=== PATIENT | female | born 1935 | race American Indian/Alaskan Native ===

== ENCOUNTER 2021-01-28 17:44 | Emergency (ER) | payer MEDICARE ==
[2021-01-28] MEDS ORDERED: predniSONE 20 MG TAB PO ONE (22:03)
[2021-01-28] MEDS ORDERED: diphenhydrAMINE 25 MG/10 ML ORAL LIQUID PO ONE (22:03)
[2021-01-28] MEDS ORDERED: cloNIDine 0.1 MG TAB PO ONE (22:56)
--- NOTE | 2021-01-29 00:54 | Emergency Department Report ---
ED General Adult HPI - General Chief complaint: Allergic Reaction Stated complaint: HIGH BLOOD PRESSURE Time Seen by Provider: 01/28/21 21:56 Source: patient Mode of arrival: Ambulatory Limitations: No Limitations - History of Present Illness Severity scale (0 -10): 3 - Related Data Previous Rx's Medication Instructions Recorded Last Taken Type hydrOXYzine HCL [Atarax] 25 mg PO Q6HR PRN #14 tablet 01/29/21 Unknown Rx predniSONE 10 mg PO QDAY #5 tab 01/29/21 Unknown Rx Allergies Allergy/AdvReac Type Severity Reaction Status Date / Time shellfish derived Allergy Swelling Verified 01/28/21 17:54 ED Review of Systems ROS: Stated complaint: HIGH BLOOD PRESSURE Other details as noted in HPI Comment: All other systems reviewed and negative ED Past Medical Hx - Past Medical History Hx Hypertension: Yes - Surgical History Additional Surgical History: HIP/HYSTO - Social History Smoking Status: Never Smoker Substance Use Type: None - Medications Home Medications: Home Medications Medication Instructions Recorded Confirmed Last Taken Type hydrOXYzine HCL [Atarax] 25 mg PO Q6HR PRN #14 tablet 01/29/21 Unknown Rx predniSONE 10 mg PO QDAY #5 tab 01/29/21 Unknown Rx ED Physical Exam - General Limitations: No Limitations General appearance: alert, in no apparent distress - Head Head exam: Present: atraumatic, normocephalic - Eye Eye exam: Present: normal appearance, PERRL, EOMI Pupils: Present: normal accommodation - ENT ENT exam: Present: normal exam, mucous membranes moist, other (Mild swelling to the lip normal posterior pharynx airway patent tongue uvula midline voice is normal no evidence of any edema no lymphadenopathy) - Neck Neck exam: Present: normal inspection, full ROM - Respiratory Respiratory exam: Present: normal lung sounds bilaterally. Absent: respiratory distress, wheezes, rales, rhonchi, accessory muscle use, decreased breath sounds - Cardiovascular Cardiovascular Exam: Present: regular rate, normal rhythm. Absent: systolic murmur, diastolic murmur, rubs, gallop - GI/Abdominal GI/Abdominal exam: Present: soft, normal bowel sounds. Absent: tenderness, guarding - Extremities Exam Extremities exam: Present: normal inspection - Back Exam Back exam: Present: normal inspection - Neurological Exam Neurological exam: Present: alert, oriented X3 - Psychiatric Psychiatric exam: Present: normal affect, normal mood - Skin Skin exam: Present: warm, dry, intact, normal color. Absent: rash ED Course Vital Signs 01/28/21 01/28/21 01/28/21 17:53 22:59 23:00 Temperature 98.6 F Pulse Rate 78 68 Respiratory 20 17 Rate Blood Pressure 202/75 200/74 O2 Sat by Pulse 99 98 Oximetry ED Medical Decision Making - Medical Decision Making This patient presents with symptoms consistent with acute hypersensitivity reaction, likely acute allergic reaction secondary to the furosemide she was started on couple days ago. Presentation not consistent with acute anaphylaxis (lack of pulmonary, dermatologic, cardiovascular or GI symptoms, lack of hypotension or exposure to known allergen), angioedema, serum sickness(no recent drug exposure, lack of fevers, arthralgias), ingestion of preformed toxin. No evidence of airway compromise or shock at this time. Plan to treat for allergic reaction with H2/H1 blockers, steroids. No indication for epinephrine at this time. Plan Presents to the emergency department complaining of high blood pressure. Patient is otherwise asymptomatic without confusion, chest pain, hematuria, or SOB. BP today is ___ Patient is not currently on medication Doubt CV, AMI, heart failure, renal infarction or failure or other end organ damage. Disposition:Discussed with patient their elevated blood pressure and need for close outpatient management of their hypertension. Will provide a prescription for the patients previous antihypertensive medication and arrange for the patient to follow up in a primary care clinic Disposition: Discussed with patient their elevated blood pressure and need for close outpatient management of their hypertension. Will provide a prescription for amlodipine 5mg PO daily and arrange for the patient to follow up in a primary care clinic Critical care attestation.: If time is entered above; I have spent that time in minutes in the direct care of this critically ill patient, excluding procedure time. ED Disposition Clinical Impression: Allergic reaction, HTN (hypertension) Disposition: DC-01 TO HOME OR SELFCARE Is pt being admited?: No Does the pt Need Aspirin: No Condition: Stable Instructions: Hypertension, Adult, [id number], Allergies, Adult, Hypertension (ED), Neuropathic Pain Prescriptions: hydrOXYzine HCL [Atarax] 25 mg PO Q6HR PRN #14 tablet PRN Reason: Itching predniSONE 10 mg PO QDAY #5 tab
[2021-01-29 01:18] VITALS: BP 139/61
== END 2021-01-29 01:41 | disposition home or self-care (01) ==
LOC: ED 17:44
DX: T78.40XA Allergy, unspecified, initial encounter (principal); I10 Essential (primary) hypertension; Z91.013 Allergy to seafood; Z98.890 Other specified postprocedural states; X58.XXXA Exposure to other specified factors, initial encounter
CPT/HCPCS: 99282; J7512; Q0163

== ENCOUNTER 2021-06-03 14:31 | Observation (INO) | payer MEDICARE ==
[~2021-06-03 14:31] MED LIST: REGADENOSON 0.4 MG/5 ML INJ IV ONE
[2021-06-03] MEDS ORDERED: traMADol 50 MG TAB PO ONE (16:39)
[2021-06-03] MEDS ORDERED: IBUPROFEN 800 MG TAB PO ONE (16:39)
--- NOTE | 2021-06-03 16:45 | Emergency Department Report ---
HPI - General Chief Complaint: Extremity Injury, Lower Time Seen by Provider: 06/03/21 16:16 - HPI HPI: MSE 5 The patient is an 85-year-old female present with a chief complaint of left hip pain. The patient states for the past 2 to 3 days she has had pain in her left hip that becomes unbearable whenever she attempts to weight-bear. Patient states the same thing happened to her right hip approximately 8 years ago prior to her receiving a right hip replacement. Patient denies any recent trauma. Patient denies history of fever. Patient came to the hospital today to have a chemical stress test performed was in turn sent to the ED because of her left hip pain. The patient has a motorized chair ([employer]) and walker which she uses at home. At rest the patient states there is no pain just soreness in the left hip. Patient states over the same period time she has noticed swelling in both of her legs. Patient denies shortness of breath. ED Past Medical Hx - Past Medical History Hx Hypertension: Yes - Surgical History Additional Surgical History: Right hip replacement (approximately 2012). Hysterectomy - Family History Family history: no significant - Social History Smoking Status: Former Smoker (None since 1983) Substance Use Type: None - Medications Home Medications: Home Medications Medication Instructions Recorded Confirmed Last Taken Type hydrOXYzine HCL [Atarax] 25 mg PO Q6HR PRN #14 tablet 01/29/21 Unknown Rx predniSONE 10 mg PO QDAY #5 tab 01/29/21 Unknown Rx ED Review of Systems ROS: Stated complaint: SWELLING BOTH LEGS Other details as noted in HPI Constitutional: denies: fever Eyes: denies: eye pain ENT: denies: throat pain Respiratory: denies: shortness of breath Cardiovascular: denies: chest pain Endocrine: no symptoms reported Gastrointestinal: denies: abdominal pain Genitourinary: denies: dysuria Musculoskeletal: arthralgia Neurological: denies: headache Physical Exam - Physical Exam Vital Signs: Vital Signs 06/03/21 14:49 Temperature 98.6 F Pulse Rate 72 Respiratory 16 Rate Blood Pressure 127/43 [Left] O2 Sat by Pulse 98 Oximetry Physical Exam: GENERAL: The patient is well-developed well-nourished female sitting on motori zed chair not appearing to be in acute distress HEENT: Normocephalic. Atraumatic. Extraocular motions are intact. Patient has moist mucous membranes. NECK: Supple. Trachea midline CHEST/LUNGS: Clear to auscultation. There is no respiratory distress noted. HEART/CARDIOVASCULAR: Regular. There is no tachycardia. There is no gallop rub or murmur. ABDOMEN: Abdomen is soft, nontender. Patient has normal bowel sounds. There is no abdominal distention. SKIN: There is no rash. There is trace to 1+ bilateral lower extremity pitting edema. There is no diaphoresis. NEURO: The patient is awake, alert, and oriented. The patient is cooperative. The patient has no focal neurologic deficits. The patient has normal speech MUSCULOSKELETAL: The patient points to her left inguinal canal/hip region when asked where she feels pain. There is no evidence of acute injury. ED Course Vital Signs 06/03/21 14:49 Temperature 98.6 F Pulse Rate 72 Respiratory 16 Rate Blood Pressure 127/43 [Left] O2 Sat by Pulse 98 Oximetry - Consultations Consultation #1: 06/03/21 19:31 Cardiology paged 06/03/21 19:[address] Rigoberto Og-swelling is new onset with elevated proBNP may admit the patient to the hospital overnight for diuresis ED Medical Decision Making - Lab Data Result diagrams: 06/03/21 17:20 06/03/21 17:20 Laboratory Tests 06/03/21 06/03/21 17:20 17:20 WBC 9.9 RBC 4.12 Hgb 11.0 Hct 34.0 MCV 82 MCH 27 L MCHC 32 RDW 14.9 Plt Count 233 Lymph % (Auto) 20.4 [place] % (Auto) 8.3 H Eos % (Auto) 2.4 Baso % (Auto) 0.8 Lymph # (Auto) 2.0 [place] # (Auto) 0.8 Eos # (Auto) 0.2 Baso # (Auto) 0.1 Seg Neutrophils % 68.1 Seg Neutrophils # 6.7 Sodium 140 Potassium 3.2 L Chloride 101.6 Carbon Dioxide 25 Anion Gap 17 BUN 18 H Creatinine 1.3 H Estimated GFR 47 BUN/Creatinine Ratio 14 Glucose 100 Calcium 9.0 Total Bilirubin 0.60 AST 14 ALT 8 Alkaline Phosphatase 89 NT-Pro-B Natriuret Pep 1560 H Total Protein 7.7 Albumin 4.0 Albumin/Globulin Ratio 1.1 - Radiology Data Radiology results: report reviewed (Left hip x-ray), image reviewed (Left hip x- ray) interpreted by me: Left hip x-ray-no acute fracture. No dislocation [facility] [address] [place] [address] XRay Report Signed Patient: SARIKA VALENZUELA MR#: [id number] 6 : 1935 Acct:[id number] Age/Sex: 85 / F ADM Date: 06/03/21 Loc: ED Attending Dr: Ordering Physician: GUSTAVO COLLINS MD Date of Service: 06/03/21 Procedure(s): XR hip 2-3V LT Accession Number(s): [id number] cc: GUSTAVO COLLINS MD Fluoro Time In Minutes: XR hip 2-3V LT INDICATION / CLINICAL INFORMATION: Pain with weightbearing. COMPARISON: None available. FINDINGS: Right hip arthroplasty. Associated heterotopic ossification. No acute fracture. Normal alignment. Joint spaces are preserved. No destructive osseous lesion or suspicious periosteal reaction. Impression: 1.No acute fracture. Signer Name: Martin Harris MD Signed: 06/03/2021 5:11 PM Workstation Name: [id number] Transcribed By: CS Dictated By: Martin Harris MD Electronically Authenticated By: Martin Harris MD Signed Date/Time: 06/03/211710 DD/ 09 TD/TT: Print Cancel - Differential Diagnosis Arthralgia, occult fracture, DVTs, peripheral edema, CHF Critical care attestation.: If time is entered above; I have spent that time in minutes in the direct care of this critically ill patient, excluding procedure time. ED Disposition Clinical Impression: Left hip pain, Peripheral edema, Elevated brain natriuretic peptide (BNP) level Disposition: ADMITTED INPATIENT Is pt being admited?: Yes Does the pt Need Aspirin: No Condition: Fair Referrals: PRIMARY CARE, [Primary Care Provider] - 3-5 Days Time of Disposition: 21:21 (Hospitalist called (Dr Pretty))
--- NOTE | 2021-06-03 17:15 | XRay Report ---
XR hip 2-3V LT INDICATION / CLINICAL INFORMATION: Pain with weightbearing. COMPARISON: None available. FINDINGS: Right hip arthroplasty. Associated heterotopic ossification. No acute fracture. Normal alignment. J oint spaces are preserved. No destructive osseous lesion or suspicious periosteal reaction. Impression: 1.No acute fracture. Signer Name: Martin Harris MD Signed: 06/03/2021 5:11 PM Workstation Name: [id number]
[2021-06-03 17:58] LABS: Basophils # (Auto) 0.1 K/mm3 (0.0-0.1); Basophils % (Auto) 0.8 % (0.0-1.8); Eosinophils # (Auto) 0.2 K/mm3 (0.0-0.4); Eosinophils % (Auto) 2.4 % (0.0-4.3); Lymphocytes % (Auto) 20.4 % (13.4-35.0); Mean Corpuscular HGB Conc 32 % (30-34); Mean Corpuscular Volume 82 fl (79-97); Monocytes # (Auto) 0.8 K/mm3 (0.0-0.8); Monocytes % (Auto) 8.3 % (0.0-7.3); Platelet Count 233 K/mm3 (140-440); Red Blood Count 4.12 M/mm3 (3.65-5.03); Red Cell Distribution Width 14.9 % (13.2-15.2)
[2021-06-03] MEDS ORDERED: MORPHINE 4 MG/1 ML INJ IV PRN (22:54)
[2021-06-03] MEDS ORDERED: MORPHINE 2 MG/1 ML INJ IV PRN (22:54)
[2021-06-03] MEDS ORDERED: ONDANSETRON 4 MG/2 ML INJ IV PRN (22:54)
[2021-06-03] MEDS ORDERED: MAGNESIUM HYDROXIDE (MOM) ORAL LIQD UDC PO PRN (22:54)
[2021-06-03] MEDS ORDERED: ACETAMINOPHEN 325 MG TAB PO PRN (22:54)
--- NOTE | 2021-06-03 23:13 | History and Physical Report ---
History of Present Illness Date of examination: 06/03/21 Date of admission: 06/03/21 21:38 Chief complaint: Left Hip Pain History of present illness: 85-year-old -[place] female who presents to the emergency room today complaining of left hip pain which has been ongoing for the past 2 to 3 days. Pain is worse upon weightbearing. She had known history of right hip replacement about 8 years ago. She denies any fall or trauma to the left hip. She was in the hospital today for a chemical stress test after which she complained of left hip pain and was subsequently sent to the emergency room by her industrial engineer for further evaluation. Patient uses a motorized wheelchair for ambulation at home. She has also noticed progressive swelling of her lower extremities over the past few days. She denies any chest pain or shortness of breath. No nausea vomiting and no abdominal pain. Work-up in the emergency room today, chest x-ray reveals right infrahilar density which could be due to vascularity but this is asymmetric. Labs reveals a BNP of 1560. Patient is being admitted with left hip pain and possibly new onset CHF. Past History Past Medical History: hypertension Past Surgical History: hysterectomy, Other (Right hip replacement.) Social history: smoking (Former smoker) Family history: no significant family history Medications and Allergies Allergies Allergy/AdvReac Type Severity Reaction Status Date / Time greco Allergy Unknown Verified 06/03/21 14:54 shellfish derived Allergy Swelling Verified 06/03/21 14:54 Home Medications Medication Instructions Recorded Confirmed Last Taken Type hydrOXYzine HCL [Atarax] 25 mg PO Q6HR PRN #14 tablet 01/29/21 Unknown Rx predniSONE 10 mg PO QDAY #5 tab 01/29/21 Unknown Rx Active Meds: Active Medications Acetaminophen (Acetaminophen 325 Mg Tab) 650 mg PO Q4H PRN PRN Reason: Pain MILD(1-3)/Fever >100.5/[place] Furosemide (Furosemide 40 Mg/4 Ml Inj) 40 mg IV BID@0600,1800 MARZENA Heparin Sodium (Porcine) (Heparin 5,000 Unit/1 Ml Vial) 5,000 unit SUB-Q Q8HR MARZENA Magnesium Hydroxide (Magnesium Hydroxide (Mom) Oral Liqd Udc) 30 ml PO Q4H PRN PRN Reason: Constipation Morphine Sulfate (Morphine 2 Mg/1 Ml Inj) 2 mg IV Q4H PRN PRN Reason: Pain, Moderate (4-6) Morphine Sulfate (Morphine 4 Mg/1 Ml Inj) 4 mg IV Q4H PRN PRN Reason: Pain , Severe (7-10) Ondansetron HCl (Ondansetron 4 Mg/2 Ml Inj) 4 mg IV Q8H PRN PRN Reason: Nausea And Vomiting Sodium Chloride (Sodium Chloride 0.9% 10 Ml Flush Syringe) 10 ml IV BID MARZENA Sodium Chloride (Sodium Chloride 0.9% 10 Ml Flush Syringe) 10 ml IV PRN PRN PRN Reason: LINE FLUSH Review of Systems Constitutional: no fever, no chills Ears, nose, mouth and throat: no nasal congestion, no sore throat Cardiovascular: no chest pain, no palpitations Respiratory: no cough, no shortness of breath Gastrointestinal: no abdominal pain, no nausea, no vomiting Musculoskeletal: other (Left hip pain), no neck pain, no low back pain Integumentary: no rash, no pruritis Neurological: no headaches, no confusion Psychiatric: no anxiety, no confusion Endocrine: no polyphagia, no polydipsia, no polyuria, no nocturia Exam - Constitutional Vitals: Temp Pulse Resp BP Pulse Ox 98.6 F 72 16 127/43 98 06/03/21 14:49 06/03/21 14:49 06/03/21 14:49 06/03/21 14:49 06/03/21 14:49 General appearance: Present: no acute distress, well-nourished - EENT Eyes: Present: PERRL, EOM intact. Absent: scleral icterus ENT: hearing intact, clear oral mucosa, dentition normal - Neck Neck: Present: supple, normal ROM - Respiratory Respiratory effort: normal Respiratory: bilateral: CTA - Cardiovascular Rhythm: regular Heart Sounds: Present: S1 & S2. Absent: systolic murmur, diastolic murmur, rub, click - Extremities Extremities: no ischemia, pulses intact, pulses symmetrical, normal temperature, normal color, Full ROM Extremity abnormal: edema (Bilateral ankle edema) Peripheral Pulses: within normal limits - Abdominal General gastrointestinal: Present: soft, non-tender, non-distended, normal bowel sounds. Absent: mass - Integumentary Integumentary: Present: clear, warm, dry, normal turgor. Absent: rash - Musculoskeletal Musculoskeletal: strength equal bilaterally - Psychiatric Psychiatric: appropriate mood/affect, intact judgment & insight, memory intact, cooperative - Neurologic Neurologic: CNII-XII intact, no focal deficits, moves all extremities Results - Labs CBC & Chem 7: 06/04/21 05:08 06/04/21 05:08 Labs: Abnormal lab results 06/03/21 06/03/21 Range/Units 17:20 17:20 MCH 27 L (28-32) pg [place] % (Auto) 8.3 H (0.0-7.3) % Potassium 3.2 L (3.6-5.0) mmol/L BUN 18 H (7-17) mg/dL Creatinine 1.3 H (0.6-1.2) mg/dL NT-Pro-B Natriuret Pep 1560 H (0-900) pg/mL Assessment and Plan - Patient Problems (1) CHF (congestive heart failure) Current Visit: Yes Status: Acute Plan to address problem: Patient placed on diuretics. Will monitor inputs and outputs and also monitor daily weight. Patient will be scheduled for echocardiogram. Consult placed to cardiology for further evaluation. (2) Elevated brain natriuretic peptide (BNP) level Current Visit: Yes Status: Acute Plan to address problem: Possibly secondary to new onset CHF. (3) Left hip pain Current Visit: Yes Status: Acute Plan to address problem: We will place on analgesic medication. X-ray of the hip reveals no acute abnormality. Will request orthopedic evaluation. (4) DVT prophylaxis Current Visit: Yes Status: Acute Plan to address problem: Patient placed on subcutaneous heparin. (5) Full code status Current Visit: Yes Status: Acute Plan to address problem: Patient is full code.
--- NOTE | 2021-06-03 23:14 | Vascular Lab Report ---
DUPLEX DOPPLER LOWER EXTREMITY VEINS, BILATERAL INDICATION / CLINICAL INFORMATION: Lower extremity swelling TECHNIQUE: Duplex doppler imaging was performed through the veins of both lower extremities using kenyetta ous compression and other maneuvers. COMPARISON: None available. FINDINGS: RIGHT COMMON FEMORAL VEIN: Negative. RIGHT FEMORAL VEIN: Negative. RIGHT POPLITEAL VEIN: Negative. RIGHT CALF VEINS: Negative. LEFT COMMON FEMORAL VEIN: Negative. LEFT FEMORAL VEIN: Negative. LEFT POPLITEAL VEIN: Negative. LEFT CALF VEINS: Negative. ADDITIONAL FINDINGS: None. IMPRESSION: No sonographic evidence for DVT in either lower extremity. Signer Name: Markus Lowe MD Signed: 06/03/2021 11:09 PM Workstation Name: [id number]
--- NOTE | 2021-06-03 23:47 | XRay Report ---
CHEST 1 VIEW INDICATION / CLINICAL INFORMATION: Peripheral edema, new onset CHF STUDY TIME: 2254 COMPARISON: None available. FINDINGS: SUPPORT DEVICES: None HEART / MEDIASTINUM: Cardiomegaly LUNGS / PLEURA: Pulmonary vascularity appears within normal limits. Patient is rotated. Right infrahi lar density is seen which could just be due to vascularity but is asymmetric. Possibility of nodulari ty or focal infiltrate in this area is not excluded. I suggest follow-up.. No pneumothorax. ADDITIONAL FINDINGS: No significant additional findings. Signer Name: Markus Lowe MD Signed: 06/03/2021 11:42 PM Workstation Name: [id number]
[2021-06-03] MEDS ORDERED: POTASSIUM CHLORIDE ER 20 MEQ TAB PO ONE (23:50)
[2021-06-04] MEDS ORDERED: POTASSIUM CHLORIDE ER 20 MEQ TAB PO ONE (05:25)
[2021-06-04] MEDS: FUROSEMIDE 40 MG/4 ML INJ IV SCH ×2 (06:08→17:18)
[2021-06-04] MEDS: HEPARIN 5,000 UNIT/1 ML VIAL SUB-Q SCH ×3 (06:09→22:00)
[2021-06-04 06:27] LABS: Basophils # (Auto) 0.1 K/mm3 (0.0-0.1); Basophils % (Auto) 0.9 % (0.0-1.8); Eosinophils # (Auto) 0.3 K/mm3 (0.0-0.4); Eosinophils % (Auto) 3.4 % (0.0-4.3); Hematocrit 31.4 % (30.3-42.9); Lymphocytes # (Auto) 1.8 K/mm3 (1.2-5.4); Lymphocytes % (Auto) 23.5 % (13.4-35.0); Mean Corpuscular HGB Conc 32 % (30-34); Mean Corpuscular Volume 83 fl (79-97); Monocytes # (Auto) 0.8 K/mm3 (0.0-0.8); Monocytes % (Auto) 10.4 % (0.0-7.3); Platelet Count 254 K/mm3 (140-440); Red Blood Count 3.77 M/mm3 (3.65-5.03); Red Cell Distribution Width 15.1 % (13.2-15.2)
[2021-06-04 06:30] LABS: INR 0.95 (0.87-1.13)
[2021-06-04 06:53] LABS: Calcium 8.4 mg/dL (8.4-10.2)
--- NOTE | 2021-06-04 10:28 | Progress Note ---
Assessment and Plan Assessment and plan: Acute heart failure exacerbation Left hip pain 06/04/2021. Await cardiology and orthopedic recommendations. Follow-up echocardiogram to assess for systolic function. History Interval history: No new issues overnight. Hospitalist Physical - Constitutional Vitals: Temp Pulse Resp BP Pulse Ox 97 F L 58 L 20 165/61 93 06/04/21 07:00 06/04/21 07:00 06/04/21 07:00 06/04/21 07:00 06/04/21 07:00 General appearance: Present: no acute distress, well-nourished - EENT Eyes: Present: PERRL, EOM intact ENT: hearing intact, clear oral mucosa, dentition normal - Neck Neck: Present: supple, normal ROM - Respiratory Respiratory effort: normal Respiratory: bilateral: CTA - Cardiovascular Rhythm: regular Heart Sounds: Present: S1 & S2. Absent: gallop, rub - Extremities Extremities: no ischemia, No edema, Full ROM - Abdominal General gastrointestinal: soft, non-tender, non-distended, normal bowel sounds - Integumentary Integumentary: Present: clear, warm, dry - Neurologic Neurologic: CNII-XII intact, moves all extremities Results - Labs CBC & Chem 7: 06/04/21 05:08 06/04/21 05:08 Labs: Laboratory Last Values WBC 7.7 K/mm3 (4.5-11.0) 06/04/21 05:08 RBC 3.77 M/mm3 (3.65-5.03) 06/04/21 05:08 Hgb 10.0 gm/dl (10.1-14.3) L 06/04/21 05:08 Hct 31.4 % (30.3-42.9) 06/04/21 05:08 MCV 83 fl (79-97) 06/04/21 05:08 MCH 26 pg (28-32) L 06/04/21 05:08 MCHC 32 % (30-34) 06/04/21 05:08 RDW 15.1 % (13.2-15.2) 06/04/21 05:08 Plt Count 254 K/mm3 (140-440) 06/04/21 05:08 Lymph % (Auto) 23.5 % (13.4-35.0) 06/04/21 05:08 [place] % (Auto) 10.4 % (0.0-7.3) H 06/04/21 05:08 Eos % (Auto) 3.4 % (0.0-4.3) 06/04/21 05:08 Baso % (Auto) 0.9 % (0.0-1.8) 06/04/21 05:08 Lymph # (Auto) 1.8 K/mm3 (1.2-5.4) 06/04/21 05:08 [place] # (Auto) 0.8 K/mm3 (0.0-0.8) 06/04/21 05:08 Eos # (Auto) 0.3 K/mm3 (0.0-0.4) 06/04/21 05:08 Baso # (Auto) 0.1 K/mm3 (0.0-0.1) 06/04/21 05:08 Seg Neutrophils % 61.8 % (40.0-70.0) 06/04/21 05:08 Seg Neutrophils # 4.7 K/mm3 (1.8-7.7) 06/04/21 05:08 PT 13.3 Sec. (12.2-14.9) 06/04/21 05:08 INR 0.95 (0.87-1.13) 06/04/21 05:08 Sodium 140 mmol/L (137-145) 06/04/21 05:08 Potassium 3.9 mmol/L (3.6-5.0) D 06/04/21 05:08 Chloride 105.6 mmol/L (98-107) 06/04/21 05:08 Carbon Dioxide 21 mmol/L (22-30) L 06/04/21 05:08 Anion Gap 17 mmol/L 06/04/21 05:08 BUN 20 mg/dL (7-17) H 06/04/21 05:08 Creatinine 1.3 mg/dL (0.6-1.2) H 06/04/21 05:08 Estimated GFR 47 ml/min 06/04/21 05:08 BUN/Creatinine Ratio 15 % 06/04/21 05:08 Glucose 85 mg/dL (65-100) 06/04/21 05:08 Calcium 8.4 mg/dL (8.4-10.2) 06/04/21 05:08 Total Bilirubin 0.60 mg/dL (0.1-1.2) 06/03/21 17:20 AST 14 units/L (5-40) 06/03/21 17:20 ALT 8 units/L (7-56) 06/03/21 17:20 Alkaline Phosphatase 89 units/L (35-129) 06/03/21 17:20 NT-Pro-B Natriuret Pep 1560 pg/mL (0-900) H 06/03/21 17:20 Total Protein 7.7 g/dL (6.3-8.2) 06/03/21 17:20 Albumin 4.0 g/dL (3.9-5) 06/03/21 17:20 Albumin/Globulin Ratio 1.1 % 06/03/21 17:20 Cota/IV: Voiding Method Incontinent Active Medications - Current Medications Current Medications: Generic Name Dose Route Start Last Admin Trade Name Freq PRN Reason Stop Dose Admin Acetaminophen 650 mg 06/03/21 22:54 Acetaminophen 325 Mg Tab PO Q4H PRN Pain MILD(1-3)/Fever >100.5/[place]VAL[place] Furosemide 40 mg 06/04/21 06:00 06/04/21 06:08 Furosemide 40 Mg/4 Ml Inj IV 40 mg BID@0600,1800 MARZENA Administration Heparin Sodium (Porcine) 5,000 unit 06/04/21 06:00 06/04/21 06:09 Heparin 5,000 Unit/1 Ml Vial SUB-Q 5,000 unit Q8HR MARZENA Administration Magnesium Hydroxide 30 ml 06/03/21 22:54 Magnesium Hydroxide (Mom) Oral Liqd Udc PO Q4H PRN Constipation Morphine Sulfate 2 mg 06/03/21 22:54 Morphine 2 Mg/1 Ml Inj IV Q4H PRN Pain, Moderate (4-6) Morphine Sulfate 4 mg 06/03/21 22:54 Morphine 4 Mg/1 Ml Inj IV Q4H PRN Pain , Severe (7-10) Ondansetron HCl 4 mg 06/03/21 22:54 Ondansetron 4 Mg/2 Ml Inj IV Q8H PRN Nausea And Vomiting Sodium Chloride 10 ml 06/04/21 10:00 06/04/21 09:13 Sodium Chloride 0.9% 10 Ml Flush Syringe IV 10 ml BID MARZENA Administration Sodium Chloride 10 ml 06/03/21 22:54 Sodium Chloride 0.9% 10 Ml Flush Syringe IV PRN PRN LINE FLUSH
--- NOTE | 2021-06-04 12:56 | Consultation ---
History of Present Illness Consult date: 06/04/21 Consult reason: congestive heart failure History of present illness: This is an 85-year old F who presented for an outpatient thallium stress test and echocardiogram yesterday. After completion of the test, patient went to the emergency department with complaints of bilateral hip pain x 3 days. Patient usually uses a walker for ambulation. She denies lower extremity pain and did not have a fall. A hip x-ray showed no acute abnormality. Lower extremity doppler was negative for DVT. She was admitted by the hospitalist and awaits evaluation by orthopedics. A cardiac consultation has been requested. Patient denies shortness of breath and denies chest pain. A chest x-ray reports cardiomegaly but no evidence of interstitial edema. She had a negative thallium stress test done yesterday. An echocardiogram result is pending. There is no ECG available for review but telemetry strips shows stable sinus rhythm. Past History Past Medical History: hypertension Past Surgical History: hysterectomy, Other (Right hip replacement.) Social history: smoking (Former smoker) Family history: no significant family history Medications and Allergies Allergies Allergy/AdvReac Type Severity Reaction Status Date / Time greco Allergy Unknown Verified 06/03/21 14:54 shellfish derived Allergy Swelling Verified 06/03/21 14:54 Home Medications Medication Instructions Recorded Confirmed Last Taken Type hydrOXYzine HCL [Atarax] 25 mg PO Q6HR PRN #14 tablet 01/29/21 Unknown Rx predniSONE 10 mg PO QDAY #5 tab 01/29/21 Unknown Rx Active Meds: Active Medications Acetaminophen (Acetaminophen 325 Mg Tab) 650 mg PO Q4H PRN PRN Reason: Pain MILD(1-3)/Fever >100.5/[place] Furosemide (Furosemide 40 Mg/4 Ml Inj) 40 mg IV BID@0600,1800 [facility] Last Admin: 06/04/21 06:08 Dose: 40 mg Documented by: Heparin Sodium (Porcine) (Heparin 5,000 Unit/1 Ml Vial) 5,000 unit SUB-Q Q8HR [facility] Last Admin: 06/04/21 06:09 Dose: 5,000 unit Documented by: Magnesium Hydroxide (Magnesium Hydroxide (Mom) Oral Liqd Udc) 30 ml PO Q4H PRN PRN Reason: Constipation Morphine Sulfate (Morphine 2 Mg/1 Ml Inj) 2 mg IV Q4H PRN PRN Reason: Pain, Moderate (4-6) Morphine Sulfate (Morphine 4 Mg/1 Ml Inj) 4 mg IV Q4H PRN PRN Reason: Pain , Severe (7-10) Ondansetron HCl (Ondansetron 4 Mg/2 Ml Inj) 4 mg IV Q8H PRN PRN Reason: Nausea And Vomiting Sodium Chloride (Sodium Chloride 0.9% 10 Ml Flush Syringe) 10 ml IV BID [facility] Last Admin: 06/04/21 09:13 Dose: 10 ml Documented by: Sodium Chloride (Sodium Chloride 0.9% 10 Ml Flush Syringe) 10 ml IV PRN PRN PRN Reason: LINE FLUSH Review of Systems Cardiovascular: no chest pain, no palpitations, no edema, no syncope, no lightheadedness, no shortness of breath Physical Examination Vital Signs Temp Pulse Resp BP Pulse Ox 98.6 F 72 16 127/43 98 06/03/21 14:49 06/03/21 14:49 06/03/21 14:49 06/03/21 14:49 06/03/21 14:49 General appearance: no acute distress, obese HEENT: Positive: PERRL Neck: Positive: trachea midline Cardiac: Positive: Reg Rate and Rhythm Lungs: Positive: Decreased Breath Sounds Neuro: Positive: Grossly Intact Extremities: Absent: edema Results 06/04/21 05:08 06/04/21 05:08 Cardiac Enzymes 06/03/21 Range/Units 17:20 AST 14 (5-40) units/L Coagulation 06/04/21 Range/Units 05:08 PT 13.3 (12.2-14.9) Sec. INR 0.95 (0.87-1.13) CBC 06/03/21 06/04/21 Range/Units 17:20 05:08 WBC 9.9 7.7 (4.5-11.0) K/mm3 RBC 4.12 3.77 (3.65-5.03) M/mm3 Hgb 11.0 10.0 L (10.1-14.3) gm/dl Hct 34.0 31.4 (30.3-42.9) % Plt Count 233 254 (140-440) K/mm3 Lymph # (Auto) 2.0 1.8 (1.2-5.4) K/mm3 Perry # (Auto) 0.8 0.8 (0.0-0.8) K/mm3 Eos # (Auto) 0.2 0.3 (0.0-0.4) K/mm3 Baso # (Auto) 0.1 0.1 (0.0-0.1) K/mm3 Comprehensive Metabolic Panel 06/03/21 06/04/21 Range/Units 17:20 05:08 Sodium 140 140 (137-145) mmol/L Potassium 3.2 L 3.9 D (3.6-5.0) mmol/L Chloride 101.6 105.6 (98-107) mmol/L Carbon Dioxide 25 21 L (22-30) mmol/L BUN 18 H 20 H (7-17) mg/dL Creatinine 1.3 H 1.3 H (0.6-1.2) mg/dL Glucose 100 85 (65-100) mg/dL Calcium 9.0 8.4 (8.4-10.2) mg/dL AST 14 (5-40) units/L ALT 8 (7-56) units/L Alkaline Phosphatase 89 (35-129) units/L Total Protein 7.7 (6.3-8.2) g/dL Albumin 4.0 (3.9-5) g/dL Assessment and Plan - Patient Problems (1) Left hip pain Current Visit: Yes Status: Acute
[2021-06-05] MEDS: FUROSEMIDE 40 MG/4 ML INJ IV SCH (06:01)
[2021-06-05] MEDS: HEPARIN 5,000 UNIT/1 ML VIAL SUB-Q SCH (06:02)
--- NOTE | 2021-06-05 07:45 | Discharge Summary ---
Providers - Providers Date of Admission: 06/04/21 11:29 Date of discharge: 06/05/21 Attending physician: LARISSA LAWS 06/03/21 22:54 Consult to Physician [CONS] Routine Comment: Consulting Provider: MARS SARMIENTO Physician Instructions: Reason For Exam: Elevated BNP. CHF- New onset 06/04/21 07:01 Consult to Physician [CONS] Routine Comment: Consulting Provider: NEFTALY ESTRADA Physician Instructions: Reason For Exam: Left hip pain. H/O right hip replacement 8 yrs ago 06/04/21 10:30 Physical Therapy Evaluation and Treat [CONS] Routine Comment: Reason For Exam: left hip pain, difficulty ambulating Primary care physician: [employer] Hospitalization Reason for admission: hip pain Condition: Fair Hospital course: 85-year-old woman who presented to the emergency room with right hip pain. She did not report an injury or fall, but it is noted that she has had previous hip replacement, has difficult ambulation with a walker and motorized wheelchair. She has no cardiac complaints, but on presentation to the emergency room she was recommended for a cardiac consultation for "CHF". There is no chest pain, no unusual shortness of breath, no palpitations. She does have minimal lower extremity edema which is chronic. Just yesterday before her presentation to the emergency room she underwent an outpatient Lexiscan thallium stress test at this hospital. The thallium stress test was normal, with normal myocardial perfusion and left ventricular ejection fraction of 70% by gated SPECT analysis. ECG during her stress test yesterday was a sinus rhythm with no acute changes. A chest x-ray on her emergency room presentation was normal size cardiac silhouette and clear lungs, no evidence of interstitial edema or heart failure. Cardiology saw the patient in consultation and recommendations were as follows: Recommendations: The patient has no symptoms, clinical, radiological or other evidence of acute heart failure. No further cardiac work-up is indicated, we will follow intermittently. If orthopedic intervention is indicated for her complaints of hip pain, cardiac risk is low based on her normal thallium stress test just done yesterday. Hip x-ray and duplex lower extremity Doppler scans were negative. Physical therapy evaluated the patient and recommended home health PT. Patient is to follow-up with orthopedics as outpatient. Dedicated discharge time 32 minutes. Disposition: HOME / SELF CARE / HOMELESS Final Discharge Diagnosis (Prints w/discharge instructions): Hip pain, chronic CHF not decompensated, Core Measure Documentation - Palliative Care Palliative Care/ Comfort Measures: Not Applicable - Core Measures Any of the following diagnoses?: none Exam - Constitutional Vitals: Temp Pulse Resp BP Pulse Ox 98.6 F 58 L 16 148/55 95 06/05/21 05:39 06/05/21 05:39 06/05/21 05:39 06/05/21 05:39 06/05/21 05:39 General appearance: Present: no acute distress, well-nourished - EENT Eyes: Present: PERRL ENT: hearing intact, clear oral mucosa - Neck Neck: Present: supple, normal ROM - Respiratory Respiratory effort: normal Respiratory: bilateral: CTA - Cardiovascular Heart Sounds: Present: S1 & S2. Absent: rub, click - Extremities Extremities: pulses symmetrical, No edema Peripheral Pulses: within normal limits - Abdominal General gastrointestinal: Present: soft, non-tender, non-distended, normal bowel sounds Female genitourinary: Present: normal - Integumentary Integumentary: Present: clear, warm, dry - Musculoskeletal Musculoskeletal: gait normal, strength equal bilaterally - Psychiatric Psychiatric: appropriate mood/affect, intact judgment & insight - Neurologic Neurologic: CNII-XII intact, moves all extremities Plan Activity: advance as tolerated Weight Bearing Status: Weight Bear as Tolerated Diet: low fat, low cholesterol, low salt Special Instructions: physical therapy Follow up with: PRIMARY CAREMD [Primary Care Provider] - 3-5 Days NEFTALY ESTRADA MD [Staff Physician] - 7 Days Prescriptions: oxyCODONE /ACETAMINOPHEN [Percocet 5/325] 1 tab PO Q4HR #6 tab
[2021-06-05 09:08] VITALS: BP 165/59
== END 2021-06-05 12:10 | disposition home or self-care (01) ==
LOC: ED 14:31 → 4A 21:38 → INTOOBSV 06-04 11:29 → OBSVTOIN 06-04 11:29
PROVIDERS: ADMIT Internal Medicine Geriatric Medicine; ATTEND Hospitalist
DX: M25.552 Pain in left hip (principal); I11.0 Hypertensive heart disease with heart failure; I50.9 Heart failure, unspecified; R79.89 Other specified abnormal findings of blood chemistry; R60.9 Edema, unspecified; Z96.641 Presence of right artificial hip joint; Z90.710 Acquired absence of both cervix and uterus; Z87.891 Personal history of nicotine dependence
CPT/HCPCS: 36415; 71045; 73502; 78452; 80048; 80053; 83880; 85025; 85610; 93017; 93306; 93970; 96372; 96374; 96376; 97161; 99285; A9502; G0378; J1644; J1940; J2785